=== PATIENT | male | born 1975 | race Caucasian/White ===

== ENCOUNTER 2018-10-30 | Emergency (ER) | payer MEDICAID, OTHER ==
[~2018-10-30] VITALS: Ht 185.4 cm; Wt 99.9 kg
[~2018-10-30] MED LIST: ONDA4TAB14 PO; TRAM50TA2 PO
[2018-10-30 00:06] VITALS: Ht 185.4 cm; Wt 99.9 kg
[2018-10-30] MEDS ORDERED: IOHEXOL 300MG/ML 150 ML BTL ONE (03:15)
[2018-10-30] MEDS ORDERED: SOD CHLORIDE 0.9% 100 ML ONE (03:15)
[2018-10-30 05:24] VITALS: BP 135/82; PULSE 93; RESP 16
== END 2018-10-30 05:30 | disposition home or self-care (01) ==
LOC: FTE
DX: K81.9 Cholecystitis, unspecified (principal)
CPT/HCPCS: 36415; 74177; 76705; 80053; 81001; 83690; 85025; Q9967; Z7502; Z7610